=== PATIENT | female | born 1940 | race Caucasian/White ===

== ENCOUNTER 2020-12-11 19:12 | Inpatient (IN) ==
[2020-12-11] MEDS ORDERED: NS 0.9% 1000 ml BAG 1,000 ML IV ONE (19:21)
[2020-12-11 20:18] LABS: Urine Appearance Cloudy; Urine Bilirubin Negative (Negative); Urine Blood 2+ (Negative); Urine Color Yellow; Urine Glucose Negative (Negative); Urine Ketones Negative (Negative); Urine Nitrite Positive (Negative); Urine Protein Negative (Negative); Urine Specific Gravity 1.031 (1.002-1.030); Urine Urobilinogen Negative (Negative)
[2020-12-11 20:21] LABS: Urine Bacteria 1+ (Absent); Urine Red Blood Cell 2+(6-10/hpf) (Absent); Urine Squamous Epithelial Cell Present (Absent); Urine White Blood Cell 2+(11-20/hpf) (Absent)
[2020-12-11 20:29] LABS: ABS Basophils 0.1 10^3/ul (0-0.2); ABS Eosinophils 0.2 10^3/ul (0-0.6); ABS Lymphocytes 1.1 10^3/ul (1.0-4.8); ABS Monocytes 0.5 10^3/ul (0-0.8); ABS Neutrophils 3.6 10^3/ul (1.5-7.7); Eosinophil % 4.3 %; Hematocrit 36 % (35-47); Hemoglobin 12.1 g/dL (12.0-16.0); Lymphocyte % 20.1 %; Mean Corpuscular HGB Conc 34 g/dL (31-36); Mean Corpuscular Hemoglobin 33 pg (27-31); Mean Corpuscular Volume 96 fL (80-97); Platelet Count 229 10^3/uL (150-450); Red Blood Count 3.69 10^6 /uL (3.70-4.87); Red Cell Distribution Width 14 % (10-15); White Blood Count 5.5 10^3/uL (3.5-10.8)
[2020-12-11 20:38] LABS: Activated Partial Thrombo Time 27.6 seconds (26.0-38.0); INR 1.16 (0.82-1.09)
[2020-12-11 20:46] LABS: Albumin/Globulin Ratio 1.5 (1-3); Calcium 8.8 mg/dL (8.6-10.3); EGFR Non-African American 98.3 (>60); Globulin 2.7 g/dL (2-4); HDL Cholesterol 43.6 mg/dL; Potassium 3.9 mmol/L (3.5-5.0); Total Bilirubin 0.4 mg/dL (0.2-1.0); Total Protein 6.7 g/dL (6.4-8.9)
[2020-12-11 20:47] LABS: Troponin I 0.02 ng/mL (<0.03)
[2020-12-11] MEDS ORDERED: cefTRIAXone 1 gm/50 mL NS BAG 1 GM/50 ML BAG IV ONE (23:02)
[2020-12-12] MEDS: Phenytoin 100 mg ER CAP PO SCH ×3 (01:47→21:40)
[2020-12-12] MEDS: Enoxaparin 40 MG/0.4 ML SYR SUBCUT SCH ×2 (01:54→21:45)
[2020-12-12] MEDS: Lactated Ringers 1000 ml BAG 1,000 ML IV SCH ×2 (01:54→13:34)
[2020-12-12] MEDS: SPIRIVA Respimat (tiotropium) 2.5 mcg/inh Inhaler INH SCH (07:21)
[2020-12-12] MEDS: NF: Mirabegron 25 mg ER TAB (NF) PO SCH (08:13)
[2020-12-12] MEDS: cefTRIAXone 1 gm/50 mL NS BAG 1 GM/50 ML BAG IVPB SCH (21:42)
[2020-12-13] MEDS: SPIRIVA Respimat (tiotropium) 2.5 mcg/inh Inhaler INH SCH (07:21)
[2020-12-13] MEDS: Phenytoin 100 mg ER CAP PO SCH ×2 (09:42→20:36)
[2020-12-13] MEDS: NF: Mirabegron 25 mg ER TAB (NF) PO SCH (11:02)
[2020-12-13] MEDS ORDERED: Dexamethasone IV 10 MG in NS 0.9% 50 ML 50 ML IVPB ONE (11:32)
[2020-12-13] MEDS ORDERED: Dexamethasone IV 4 MG/ML 5 ML VIAL (20 MG) ONE (12:21)
[2020-12-13] MEDS: cefTRIAXone 1 gm/50 mL NS BAG 1 GM/50 ML BAG IVPB SCH (20:32)
[2020-12-13] MEDS: Enoxaparin 40 MG/0.4 ML SYR SUBCUT SCH (20:37)
[2020-12-13] MEDS ORDERED: Enoxaparin 40 MG/0.4 ML SYR SUBCUT SCH (23:00)
[2020-12-14] MEDS: Phenytoin 100 mg ER CAP PO SCH ×2 (09:58→21:47)
[2020-12-14] MEDS: NF: Mirabegron 25 mg ER TAB (NF) PO SCH (10:09)
[2020-12-14] MEDS: SPIRIVA Respimat (tiotropium) 2.5 mcg/inh Inhaler INH SCH (11:32)
[2020-12-14] MEDS ORDERED: Perflutren Lipid Microsphere 3 ML VIAL ONE (12:21)
[2020-12-14] MEDS: cefTRIAXone 1 gm/50 mL NS BAG 1 GM/50 ML BAG IVPB SCH (12:57)
[2020-12-14] MEDS: Enoxaparin 40 MG/0.4 ML SYR SUBCUT SCH (22:31)
[2020-12-15 06:36] LABS: Hematocrit 36 % (35-47); Hemoglobin 12.2 g/dL (12.0-16.0); Mean Corpuscular HGB Conc 34 g/dL (31-36); Mean Corpuscular Hemoglobin 33 pg (27-31); Mean Corpuscular Volume 96 fL (80-97); Platelet Count 220 10^3/uL (150-450); Red Blood Count 3.76 10^6 /uL (3.70-4.87); Red Cell Distribution Width 14 % (10-15); White Blood Count 5.8 10^3/uL (3.5-10.8)
[2020-12-15 06:56] LABS: Phenytoin 15.1 mcg/mL (10-20)
[2020-12-15 06:57] LABS: Calcium 8.4 mg/dL (8.6-10.3); EGFR African American 134.6 (>60); EGFR Non-African American 111.3 (>60); Potassium 3.4 mmol/L (3.5-5.0)
[2020-12-15 07:08] LABS: Activated Partial Thrombo Time 30.8 seconds (26.0-38.0); INR 1.14 (0.82-1.09)
[2020-12-15] MEDS: SPIRIVA Respimat (tiotropium) 2.5 mcg/inh Inhaler INH SCH (07:32)
[2020-12-15] MEDS ORDERED: Potassium Chlor 20 meq TAB.ER PO ONE (08:30)
[2020-12-15] MEDS: Phenytoin 100 mg ER CAP PO SCH ×2 (08:57→21:23)
[2020-12-15] MEDS: NF: Mirabegron 25 mg ER TAB (NF) PO SCH (09:00)
[2020-12-15] MEDS: cefTRIAXone 1 gm/50 mL NS BAG 1 GM/50 ML BAG IVPB SCH (11:58)
[2020-12-15 16:12] LABS: Lamotrigine 2.3 mcg/mL (2.5 - 15.0)
[2020-12-15] MEDS: Enoxaparin 40 MG/0.4 ML SYR SUBCUT SCH (21:24)
[2020-12-16] MEDS ORDERED: ceFAZolin 2 GM PREMIX 2 GM/50 ML BAG IVPB ONE ×2 (07:00)
[2020-12-16] MEDS: SPIRIVA Respimat (tiotropium) 2.5 mcg/inh Inhaler INH SCH (08:26)
[2020-12-16] MEDS: Phenytoin 100 mg ER CAP PO SCH ×2 (08:42→21:55)
[2020-12-16] MEDS: cefTRIAXone 1 gm/50 mL NS BAG 1 GM/50 ML BAG IVPB SCH (08:45)
[2020-12-16] MEDS: NF: Mirabegron 25 mg ER TAB (NF) PO SCH (08:45)
[2020-12-16] MEDS: Enoxaparin 40 MG/0.4 ML SYR SUBCUT SCH (22:47)
[2020-12-17] MEDS: Enoxaparin 40 MG/0.4 ML SYR SUBCUT SCH (05:24)
[2020-12-17] MEDS ORDERED: Lactated Ringers 1000 ml BAG 1,000 ML IV SCH (06:00)
[2020-12-17] MEDS ORDERED: Buffered Lidocaine 1% SYRIN 1 ml INTRADERM ONE (06:00)
[2020-12-17 06:24] LABS: ABS Basophils 0.1 10^3/ul (0-0.2); ABS Eosinophils 0.2 10^3/ul (0-0.6); ABS Monocytes 0.5 10^3/ul (0-0.8); ABS Neutrophils 3.7 10^3/ul (1.5-7.7); Eosinophil % 4.1 %; Hematocrit 34 % (35-47); Hemoglobin 11.7 g/dL (12.0-16.0); Lymphocyte % 18.6 %; Mean Corpuscular HGB Conc 34 g/dL (31-36); Mean Corpuscular Hemoglobin 33 pg (27-31); Mean Corpuscular Volume 96 fL (80-97); Mean Platelet Volume 7.3 fL (7.4-10.4); Nucleated Red Blood Cells % 0.1; Platelet Count 202 10^3/uL (150-450); Red Blood Count 3.58 10^6 /uL (3.70-4.87); Red Cell Distribution Width 14 % (10-15); White Blood Count 5.6 10^3/uL (3.5-10.8)
[2020-12-17 06:39] LABS: Calcium 8.5 mg/dL (8.6-10.3); EGFR African American 140.8 (>60); EGFR Non-African American 116.3 (>60); Potassium 3.5 mmol/L (3.5-5.0)
[2020-12-17] MEDS ORDERED: Midazolam 2 mg/2 ml VIAL 1 mg/ml 2 ml VIAL (2 mg) ONE (06:56)
[2020-12-17] MEDS ORDERED: fentaNYL 250 mcg/5 ml 50 MCG/ML 5 ml VIAL (250 MCG) ONE (06:57)
[2020-12-17] MEDS ORDERED: Remifentanil 2 MG VIAL ONE (06:57)
[2020-12-17] MEDS ORDERED: ceFAZolin 2 GM PREMIX 2 GM/50 ML BAG IVPB ONE (07:00)
[2020-12-17] MEDS ORDERED: levETIRAcetam 500 MG IVPREMIX 500 MG/100 ML BAG IVPB ONE ×2 (07:34→12:00)
[2020-12-17] MEDS ORDERED: Lidocaine 1% w EPI 1:200,000 SDV 30 ML VIAL ONE (07:38)
[2020-12-17] MEDS ORDERED: Vancomycin 1,000 MG VIAL ONE (07:39)
[2020-12-17] MEDS ORDERED: Bacitracin OINTMENT TUBE ONE ×2 (07:39→12:26)
[2020-12-17] MEDS ORDERED: ceFAZolin VIAL VIAL ONE (07:39)
[2020-12-17] MEDS ORDERED: Bacitracin INJECTION 50,000 UNITS ONE (07:39)
[2020-12-17] MEDS ORDERED: Lidocaine 2% PF 5 ML VIAL ONE (07:59)
[2020-12-17] MEDS: Phenytoin 100 mg ER CAP PO SCH (08:04)
[2020-12-17] MEDS ORDERED: Rocuronium 50 mg VIAL 10 mg/ml 5 ml VIAL (50 mg) ONE ×2 (08:11→10:27)
[2020-12-17] MEDS ORDERED: ceFAZolin 2 GM PREMIX 2 GM/50 ML BAG ONE (08:42)
[2020-12-17] MEDS ORDERED: cefTRIAXone 1 gm/50 mL NS BAG 1 GM/50 ML BAG ONE (08:42)
[2020-12-17] MEDS: SPIRIVA Respimat (tiotropium) 2.5 mcg/inh Inhaler INH SCH (09:14)
[2020-12-17] MEDS: cefTRIAXone 1 gm/50 mL NS BAG 1 GM/50 ML BAG IVPB SCH (09:35)
[2020-12-17] MEDS ORDERED: Propofol 10 MG/ML 20 ML BTL ONE (10:35)
[2020-12-17] MEDS ORDERED: Ketamine HCL 50 mg/ml 10 ml VIAL (500 MG) ONE (10:48)
[2020-12-17] MEDS ORDERED: Ondansetron 4 mg VIAL 2 MG/ML 2 ml VIAL ONE (12:28)
[2020-12-17] MEDS ORDERED: Acetaminophen IV 1 GM/100ML 100 ML ONE (12:28)
[2020-12-17] MEDS ORDERED: DiMENhydriNATE IV 50 mg/ml 1 ml VIAL IV PUSH PRN (12:45)
[2020-12-17] MEDS ORDERED: Naloxone 0.4 mg VIAL 0.4 mg/ml 1 ml VIAL IV PRN (12:45)
[2020-12-17] MEDS ORDERED: fentaNYL 100 mcg/2 ml 50 MCG/ML VIAL IV PRN (12:45)
[2020-12-17] MEDS ORDERED: Labetalol IV 5 MG/ML 20 ml VIAL ONE (13:09)
[2020-12-17] MEDS ORDERED: Glycopyrrolate IV 0.2 MG/ML 1 ML VIAL ONE (13:17)
[2020-12-17] MEDS ORDERED: Phenylephrine IV 10 MG/ML 1 ml VIAL ONE (13:17)
[2020-12-17] MEDS ORDERED: Labetalol IV 5 MG/ML 20 ml VIAL IV PUSH ONE ×2 (13:20→13:23)
[2020-12-17] MEDS ORDERED: Morphine 2 MG/ML SYRINGE IV PRN (16:37)
[2020-12-17] MEDS ORDERED: Ondansetron 4 mg VIAL 2 MG/ML 2 ml VIAL IV PRN (16:39)
[2020-12-17] MEDS ORDERED: NS 0.9% 1000 ml BAG 1,000 ML IV SCH (16:45)
[2020-12-17] MEDS ORDERED: hydrALAZINE 20 mg/ml 1 ML Vial IV IV SLOW PU PRN (16:48)
[2020-12-17] MEDS: NF: Mirabegron 25 mg ER TAB (NF) PO SCH (16:52)
[2020-12-17] MEDS ORDERED: Albuterol 2.5mg/3 ml (0.083%) NEB.SOLN INH PRN (17:10)
[2020-12-17] MEDS: Dexamethasone IV 4 MG/ML VIAL 1 ml VIAL IV SLOW PU SCH (18:50)
[2020-12-17] MEDS: ceFAZolin 2 GM PREMIX 2 GM/50 ML BAG IVPB SCH (18:51)
[2020-12-17] MEDS: PHENYTOIN 100 MG PO SCH (20:53)
[2020-12-18] MEDS: ceFAZolin 2 GM PREMIX 2 GM/50 ML BAG IVPB SCH ×3 (01:32→17:17)
[2020-12-18] MEDS: Dexamethasone IV 4 MG/ML VIAL 1 ml VIAL IV SLOW PU SCH ×3 (01:32→17:17)
[2020-12-18 05:40] LABS: ABS Basophils 0.1 10^3/ul (0-0.2); ABS Lymphocytes 0.6 10^3/ul (1.0-4.8); ABS Monocytes 0.6 10^3/ul (0-0.8); Eosinophil % 0.3 %; Hematocrit 34 % (35-47); Hemoglobin 11.5 g/dL (12.0-16.0); Lymphocyte % 6.8 %; Mean Corpuscular HGB Conc 34 g/dL (31-36); Mean Corpuscular Hemoglobin 33 pg (27-31); Mean Corpuscular Volume 96 fL (80-97); Mean Platelet Volume 7.2 fL (7.4-10.4); Platelet Count 214 10^3/uL (150-450); Red Blood Count 3.51 10^6 /uL (3.70-4.87); Red Cell Distribution Width 13 % (10-15); White Blood Count 9.4 10^3/uL (3.5-10.8)
[2020-12-18] MEDS: Enoxaparin 40 MG/0.4 ML SYR SUBCUT SCH (05:44)
[2020-12-18 05:55] LABS: Calcium 8.5 mg/dL (8.6-10.3); EGFR African American 134.6 (>60); EGFR Non-African American 111.3 (>60); Potassium 3.5 mmol/L (3.5-5.0)
[2020-12-18] MEDS: PTO:Mirabegron 25 mg ER TAB (NF) PO SCH ×2 (10:13→10:58)
[2020-12-18] MEDS: Magnesium Hydroxide LIQ 30 ML UDC PO SCH (10:14)
[2020-12-18] MEDS: SPIRIVA Respimat (tiotropium) 2.5 mcg/inh Inhaler INH SCH (10:17)
[2020-12-18] MEDS: PHENYTOIN 100 MG PO SCH ×2 (10:19→20:23)
[2020-12-19] MEDS: Dexamethasone IV 4 MG/ML VIAL 1 ml VIAL IV SLOW PU SCH ×3 (01:42→16:43)
[2020-12-19] MEDS: ceFAZolin 2 GM PREMIX 2 GM/50 ML BAG IVPB SCH ×3 (01:43→17:46)
[2020-12-19 04:58] LABS: ABS Eosinophils 0.1 10^3/ul (0-0.6); ABS Lymphocytes 0.7 10^3/ul (1.0-4.8); ABS Monocytes 0.8 10^3/ul (0-0.8); ABS Neutrophils 6.9 10^3/ul (1.5-7.7); Hematocrit 32 % (35-47); Lymphocyte % 8.1 %; Mean Corpuscular HGB Conc 35 g/dL (31-36); Mean Corpuscular Hemoglobin 33 pg (27-31); Mean Corpuscular Volume 95 fL (80-97); Mean Platelet Volume 7.2 fL (7.4-10.4); Platelet Count 204 10^3/uL (150-450); Red Blood Count 3.34 10^6 /uL (3.70-4.87); Red Cell Distribution Width 14 % (10-15); White Blood Count 8.5 10^3/uL (3.5-10.8)
[2020-12-19] MEDS: Enoxaparin 40 MG/0.4 ML SYR SUBCUT SCH (05:10)
[2020-12-19] MEDS: Magnesium Hydroxide LIQ 30 ML UDC PO SCH (09:28)
[2020-12-19] MEDS: PHENYTOIN 100 MG PO SCH ×2 (09:29→20:14)
[2020-12-19] MEDS: PTO:Mirabegron 25 mg ER TAB (NF) PO SCH (09:29)
[2020-12-19] MEDS: SPIRIVA Respimat (tiotropium) 2.5 mcg/inh Inhaler INH SCH (09:35)
[2020-12-20] MEDS: Dexamethasone IV 4 MG/ML VIAL 1 ml VIAL IV SLOW PU SCH ×3 (00:27→17:21)
[2020-12-20] MEDS: ceFAZolin 2 GM PREMIX 2 GM/50 ML BAG IVPB SCH ×3 (02:26→17:21)
[2020-12-20 04:39] LABS: ABS Basophils 0.1 10^3/ul (0-0.2); ABS Eosinophils 0.1 10^3/ul (0-0.6); ABS Monocytes 0.7 10^3/ul (0-0.8); ABS Neutrophils 7.1 10^3/ul (1.5-7.7); Eosinophil % 1.3 %; Hematocrit 32 % (35-47); Hemoglobin 10.9 g/dL (12.0-16.0); Lymphocyte % 11.1 %; Mean Corpuscular HGB Conc 34 g/dL (31-36); Mean Corpuscular Hemoglobin 33 pg (27-31); Mean Corpuscular Volume 95 fL (80-97); Mean Platelet Volume 7.2 fL (7.4-10.4); Nucleated Red Blood Cells % 0.1; Platelet Count 225 10^3/uL (150-450); Red Blood Count 3.35 10^6 /uL (3.70-4.87); Red Cell Distribution Width 14 % (10-15)
[2020-12-20] MEDS: Enoxaparin 40 MG/0.4 ML SYR SUBCUT SCH (06:05)
[2020-12-20] MEDS: Magnesium Hydroxide LIQ 30 ML UDC PO SCH (09:30)
[2020-12-20] MEDS: PHENYTOIN 100 MG PO SCH ×2 (09:37→20:08)
[2020-12-20] MEDS: PTO:Mirabegron 25 mg ER TAB (NF) PO SCH (09:38)
[2020-12-20] MEDS: SPIRIVA Respimat (tiotropium) 2.5 mcg/inh Inhaler INH SCH (09:41)
[2020-12-21] MEDS: Dexamethasone IV 4 MG/ML VIAL 1 ml VIAL IV SLOW PU SCH ×3 (00:22→17:32)
[2020-12-21] MEDS: Enoxaparin 40 MG/0.4 ML SYR SUBCUT SCH (05:44)
[2020-12-21 06:10] LABS: ABS Basophils 0.1 10^3/ul (0-0.2); ABS Eosinophils 0.2 10^3/ul (0-0.6); ABS Lymphocytes 1.2 10^3/ul (1.0-4.8); ABS Monocytes 0.7 10^3/ul (0-0.8); ABS Neutrophils 6.7 10^3/ul (1.5-7.7); Eosinophil % 1.8 %; Hematocrit 32 % (35-47); Hemoglobin 10.9 g/dL (12.0-16.0); Lymphocyte % 13.8 %; Mean Corpuscular HGB Conc 34 g/dL (31-36); Mean Corpuscular Hemoglobin 33 pg (27-31); Mean Corpuscular Volume 95 fL (80-97); Mean Platelet Volume 7.3 fL (7.4-10.4); Platelet Count 251 10^3/uL (150-450); Red Blood Count 3.31 10^6 /uL (3.70-4.87); Red Cell Distribution Width 14 % (10-15); White Blood Count 8.8 10^3/uL (3.5-10.8)
[2020-12-21 06:26] LABS: Calcium 8.6 mg/dL (8.6-10.3); EGFR African American 166.9 (>60); EGFR Non-African American 137.9 (>60); Potassium 3.8 mmol/L (3.5-5.0)
[2020-12-21] MEDS: PTO:Mirabegron 25 mg ER TAB (NF) PO SCH (09:02)
[2020-12-21] MEDS: PHENYTOIN 100 MG PO SCH ×2 (09:03→22:56)
[2020-12-21] MEDS: Magnesium Hydroxide LIQ 30 ML UDC PO SCH (09:06)
[2020-12-21] MEDS: SPIRIVA Respimat (tiotropium) 2.5 mcg/inh Inhaler INH SCH (09:44)
[2020-12-22] MEDS: Dexamethasone IV 4 MG/ML VIAL 1 ml VIAL IV SLOW PU SCH ×2 (00:17→09:47)
[2020-12-22] MEDS: Enoxaparin 40 MG/0.4 ML SYR SUBCUT SCH (06:07)
[2020-12-22] MEDS: Magnesium Hydroxide LIQ 30 ML UDC PO SCH (09:43)
[2020-12-22] MEDS: PTO:Mirabegron 25 mg ER TAB (NF) PO SCH (09:44)
[2020-12-22] MEDS: PHENYTOIN 100 MG PO SCH (09:46)
[2020-12-22] MEDS: SPIRIVA Respimat (tiotropium) 2.5 mcg/inh Inhaler INH SCH (09:47)
[2020-12-22 11:44] VITALS: BP 138/73
[2020-12-22] MEDS ORDERED: HYDROcodone/ACETAMIN 5/325 mg TAB PO PRN (12:49)
== END 2020-12-22 14:57 | disposition swing bed (61) | DRG 472 ==
LOC: ED 19:12 → MEDTELE 23:44 → MED 12-13 23:41 → SSU 12-17 16:28
PROVIDERS: ADMIT Internal Medicine; ATTEND Internal Medicine

== ENCOUNTER 2022-02-25 12:13 | Inpatient (IN) ==
[2022-02-25] MEDS ORDERED: Albuterol HFA INHALER 8 gm MDI INH PRN (12:28)
[2022-02-25] MEDS: Enoxaparin 40 MG/0.4 ML SYR SUBCUT SCH (13:06)
[2022-02-25] MEDS ORDERED: Senna TAB 8.6 mg TAB PO PRN (13:49)
[2022-02-25] MEDS: PHENYTOIN 100 MG PO SCH (20:57)
[2022-02-26] MEDS: Mirabegron 25 mg ER TAB (NF) PO SCH (08:20)
[2022-02-26] MEDS: NON FORMULARY MED (Ferrous Sulfate 27 mg iron Tablet) PO SCH (08:20)
[2022-02-26] MEDS: PHENYTOIN 100 MG PO SCH ×2 (08:21→21:53)
[2022-02-26] MEDS: Enoxaparin 40 MG/0.4 ML SYR SUBCUT SCH (11:57)
[2022-02-27] MEDS: Mirabegron 25 mg ER TAB (NF) PO SCH (10:50)
[2022-02-27] MEDS: NON FORMULARY MED (Ferrous Sulfate 27 mg iron Tablet) PO SCH (10:50)
[2022-02-27] MEDS: Enoxaparin 40 MG/0.4 ML SYR SUBCUT SCH (11:00)
[2022-02-27] MEDS: PHENYTOIN 100 MG PO SCH ×2 (11:34→22:05)
[2022-02-28 08:27] LABS: Rapid COVID-19 Molecular Undetected (Undetected)
[2022-02-28] MEDS: NON FORMULARY MED (Ferrous Sulfate 27 mg iron Tablet) PO SCH (08:42)
[2022-02-28] MEDS: Mirabegron 25 mg ER TAB (NF) PO SCH (08:42)
[2022-02-28] MEDS: PHENYTOIN 100 MG PO SCH ×3 (08:48→22:32)
[2022-02-28] MEDS: Enoxaparin 40 MG/0.4 ML SYR SUBCUT SCH (12:34)
[2022-03-01 08:18] VITALS: BP 164/58
[2022-03-01] MEDS: Mirabegron 25 mg ER TAB (NF) PO SCH (10:08)
[2022-03-01] MEDS: NON FORMULARY MED (Ferrous Sulfate 27 mg iron Tablet) PO SCH (10:08)
[2022-03-01] MEDS: PHENYTOIN 100 MG PO SCH (10:12)
== END 2022-03-01 10:40 | DRG 690 ==
LOC: INTOOBSV 12:13 → MEDTELE 12:13 → OBSVTOIN 12:18 → SUATTDRO 12:18
PROVIDERS: ADMIT Internal Medicine; ATTEND Hospitalist